=== PATIENT | male | born 1940 | race Caucasian/White ===

== ENCOUNTER 2017-07-30 12:11 | Outpatient (CLI) | payer MEDICARE, BC ==
[2017-07-30 14:28] LABS: Hemoglobin 13.5 g/dL (14.0-18.0); Mean Corpuscular HGB CONC 33.6 g/dL (32.0-36.0); Mean Corpuscular Hemoglobin 31.2 pg (27.0-31.0); Mean Corpuscular Volume 92.8 fl (80.0-94.0); Mean Platelet Volume 7.7 fL (7.4-10.4); Platelet Count 177 thou/uL (130-400); RBC Distribution Width 12.6 % (11.5-14.5); Red Blood Cell (RBC) Count 4.31 mill/uL (4.70-6.10); White Blood Cell (WBC) Count 7.8 thou/uL (4.8-10.8)
[2017-07-30 14:45] LABS: Anion Gap 11 mmol/L (10-20); BUN (Urea Nitrogen) 25 mg/dL (8.4-25.7); Calc. Creatinine Clearance 0 mL/min (70-130); Calcium 9.5 mg/dL (7.8-10.44); Carbon Dioxide 26 mmol/L (23-31); Chloride 102 mmol/L (98-107); Estimated GFR-MDRD 63; Glucose 103 mg/dL (83-110); Potassium 3.9 mmol/L (3.5-5.1); Sodium 135 mmol/L (136-145)
--- NOTE | 2017-07-31 19:09 | EKG ---
Test Reason : Blood Pressure : / mmHG Vent. Rate : 067 BPM Atrial Rate : 067 BPM P-R Int : 242 ms QRS Dur : 084 ms QT Int : 388 ms P-R-T Axes : 048 -44 046 degrees QTc Int : 409 ms Sinus rhythm with 1st degree A-V block with Fusion complexes Left axis deviation Anterior infarct , age undetermined Abnormal ECG No previous ECGs available Confirmed by JANIYA WILLIS, DR. Pappas ([id number]) on 07/31/2017 7:09:22 PM Referred By: DAVID Confirmed By:DR. Mian DENSON MD
== END 2017-07-30 12:12 | disposition home or self-care (01) ==
LOC: LABBT 12:11
PROVIDERS: ATTEND Orthopaedic Surgery
DX: Z01.812 Encounter for preprocedural laboratory examination (principal); S93.432A Sprain of tibiofibular ligament of left ankle, initial encounter
CPT/HCPCS: 80048; 85027; 93005; 93010

== ENCOUNTER 2017-08-03 06:55 | Day surgery (SDC) | payer MEDICARE, BC ==
[2017-07-30 12:34] VITALS: BMI 28.7
[2017-08-03] MEDS ORDERED: Dexamethasone 4 mg/ml Vial ONE (08:52)
[2017-08-03] MEDS ORDERED: Midazolam HCl 2 mg/2 ml Vial ONE (08:52)
[2017-08-03] MEDS ORDERED: Lidocaine 1% (PF) 30 ML VIAL ONE (08:52)
[2017-08-03] MEDS ORDERED: Fentanyl 100 MCG/2 ML VIAL ONE (08:52)
[2017-08-03] MEDS ORDERED: CEFAZOLIN/Water 2 GM/20 ML SYRINGE ONE (09:27)
--- NOTE | 2017-08-03 12:59 | RAD ---
THREE INTRAOPERATIVE VIEWS OF THE LEFT ANKLE: Date: 08-03-17 Comparison: None. History: Left ankle surgery. FINDINGS: Three provided images demonstrate a screw overlying the distal tibia/fibula on the lateral exam, inco mpletely accessed on this exam. IMPRESSION: ORIF as above. POS: [facility]
--- NOTE | 2017-08-03 14:31 | OP ---
DATE OF PROCEDURE: 08/03/2017 PREOPERATIVE DIAGNOSES: 1. Left syndesmotic disruption. 2. Proximal fibula fracture. POSTOPERATIVE DIAGNOSES: 1. Left syndesmotic disruption. 2. Proximal fibula fracture. PROCEDURE PERFORMED: 1. Open reduction and internal fixation of left syndesmosis disruption 2. Nonoperative management of proximal fibula fracture. 3. Short leg splint. STAFF: Oswald Jhaveri M.D. SERVICE OR WORK DISPATCHER: Balaji Mejia PA-C. ANESTHESIA: Dr. Zamora. The patient received a LMA with a single-shot lateral sciatic and saphenous. TOURNIQUET TIME: 25 minutes at 300 mmHg. ESTIMATED BLOOD LOSS: 20 mL. IMPLANTS: An [employer] knotless TightRope. ANTIBIOTICS: Ancef 2 grams. COMPLICATIONS: None. HISTORY OF PRESENT ILLNESS: Mr. Brown is a 77-year-old male who presented with left leg pain after he fainted, injuring his left leg. The patient had a proximal fibula shaft fracture as well as syndesmotic disruption that was noted on stress radiograph. I discussed with the patient the risks and benefits of ORIF of the syndesmosis to include pain, scar, bleeding, infection, damage to vital structures, decreased range of motion, strength, nonunion, malunion, fracture above or below the implant, continued pain. I discussed risks and benefits of surgery. The patient understood the risks and benefits and elected to proceed. PROCEDURE NOTE: Timeout was performed designating the patient's left lower extremity as the operative site based on sight, consents markings. After completion of timeout, the patient's left lower extremity was prepped and draped in sterile fashion. The patient's tourniquet brought up, left up for a total of 25 minutes. I made an oblique incision, measured approximately 10-15 mm north as well 25 mm north of joint line to ensure position of my guide pin within syndesmosis as I desired. I then opened, dissected down through skin, down to the fibula, placed the tracker to assure I was on the bone, cauterized found my center position, put my guide pin, clamped my point reduction clamp and reduced the fracture. I took a stress view before to show its widening. I then clamped across, I drilled bicortically and placed our TightRope, cinched the bone together, ensured that it was flipped on the opposite side, had a nice firm tightening using a hemostats. I tied a knot over the top with 3 passes, cut the sutures, stressed under fluoroscopic guidance to assure that it was stable. I then oversewed the fascia. We oversewed the fascia on top, subq and nylon for skin. The patient was then placed in a short leg posterior splint, nonweightbearing. ASSESSMENT PLAN: The patient will follow up me in about 10-14 days. Nonweightbearing. MTDD
== END 2017-08-03 13:54 | disposition home or self-care (01) ==
LOC: SDC 06:55
PROVIDERS: ATTEND Orthopaedic Surgery
PROC: 0QSK04Z Reposition Left Fibula with Internal Fixation Device, Open Approach (ICD-10-PCS; principal; 2017-08-03)
DX: S93.432A Sprain of tibiofibular ligament of left ankle, initial encounter (principal); S82.442A Displaced spiral fracture of shaft of left fibula, initial encounter for closed fracture; Z79.82 Long term (current) use of aspirin; Z79.899 Other long term (current) drug therapy; W19.XXXA Unspecified fall, initial encounter
CPT/HCPCS: 76000; J1100; J2001; J2250; J3010

== ENCOUNTER 2017-10-18 07:33 | Day surgery (SDC) | payer MEDICARE, BC ==
[2017-10-15 09:20] VITALS: BMI 26.8
[2017-10-18 07:49] LABS: #Basophils 0.1 thou/uL (0.0-0.2); #Eosinphils 0.2 thou/uL (0.0-0.7); #Lymphocytes 1.3 thou/uL (1.20-3.40); #Monocytes 0.5 thou/uL (0.11-0.59); #Neutrophils 3.6 thou/uL (1.40-6.50); %Basophils 1.3 % (0.0-1.0); %Eosinophils 4.3 % (0.0-10.0); %Lymphocytes 23.1 % (21.0-51.0); %Monocytes 7.9 % (0.0-10.0); %Neutrophils 63.5 % (42.0-75.0); Hemoglobin 14.4 g/dL (14.0-18.0); Mean Corpuscular HGB CONC 34.4 g/dL (32.0-36.0); Mean Corpuscular Hemoglobin 32.1 pg (27.0-31.0); Mean Corpuscular Volume 93.4 fl (80.0-94.0); Mean Platelet Volume 7.6 fL (7.4-10.4); Platelet Count 187 thou/uL (130-400); Red Blood Cell (RBC) Count 4.47 mill/uL (4.70-6.10); White Blood Cell (WBC) Count 5.7 thou/uL (4.8-10.8)
[2017-10-18 07:57] LABS: PTT 34.4 SEC (22.9-36.1); Prothrombin Time 13.1 SEC (12.0-14.7)
[2017-10-18 08:43] VITALS: TEMP 97.3
[2017-10-18] MEDS ORDERED: Sodium Bicarbonate 2.5 MEQ/5 ML VIAL ONE (08:44)
[2017-10-18] MEDS ORDERED: Fentanyl 100 MCG/2 ML VIAL ONE (08:45)
[2017-10-18] MEDS ORDERED: Lidocaine 1% PF 5 ML VIAL ONE (08:45)
[2017-10-18] MEDS ORDERED: Midazolam HCl 2 mg/2 ml Vial ONE (08:45)
--- NOTE | 2017-10-18 13:45 | ULT ---
ULTRASOUND GUIDED RANDOM RIGHT HEPATIC LOBE BIOPSY: Date: 10/18/17 HISTORY: Abnormal liver function tests. TECHNIQUE: The procedure, including the risks and complications, were explained to the patient and informed cons ent was obtained. The patient was placed on the sonography table in supine position. Limited sonograp hic evaluation of the liver was performed. An area in the mid axillary line right upper quadrant was marked and meticulously prepped and draped in the usual sterile fashion. Skin and subcutaneous tissue s were infiltrated with buffered 1% lidocaine for local anesthesia. Small skin incision was made. Utilizing concurrent real-time ultrasound guidance, a 17 gauge guide ne edle was advanced into the most peripheral aspect of the right hepatic lobe. Utilizing coaxial techni que, a single 18 gauge core needle biopsy specimen was obtained. Inner stylette was replaced. Small G elfoam pledget was placed along the biopsy tract, and a dry, sterile dressing was placed. The patient tolerated the procedure well and without immediate complication. The patient was placed i n right lateral decubitus view for 1 hour and further monitored in radiology nurse's holding area. Th e patient experienced no immediate complications post biopsy. IMPRESSION: Technically successful ultrasound guided random right hepatic lobe biopsy. Pathology is currently pen mykel. POS: [facility]
== END 2017-10-18 12:45 | disposition home or self-care (01) ==
LOC: ULT 07:33
PROVIDERS: ATTEND Internal Medicine Gastroenterology
PROC: 0FB13ZX Excision of Right Lobe Liver, Percutaneous Approach, Diagnostic (ICD-10-PCS; principal; 2017-10-18)
DX: K83.0 Cholangitis (principal); K83.1 Obstruction of bile duct; R17 Unspecified jaundice; Z79.899 Other long term (current) drug therapy
CPT/HCPCS: 36415; 47000; 76942; 85025; 85610; 85730; 88307; 88313; J2001; J2250; J3010